=== PATIENT | male | born 2000 | race Caucasian/White ===

== ENCOUNTER 2024-04-24 16:26 | Outpatient (CLI) | payer BC, SELFPAY ==
[2024-04-25 00:16] LABS: Chlamydia DNA Amplified* NOT DETECTED (No Detected); GC DNA Amplified* NOT DETECTED (No Detected)
== END 2024-04-24 16:27 | disposition home or self-care (01) ==
PROVIDERS: PCP Family Medicine; Visit Provider Family Medicine
DX: Z00.00 Encounter for general adult medical examination without abnormal findings (principal); Z11.3 Encounter for screening for infections with a predominantly sexual mode of transmission; Z13.6 Encounter for screening for cardiovascular disorders; Z13.1 Encounter for screening for diabetes mellitus
CPT/HCPCS: 80053; 80061; 86592; 86703; 87491; 87591

== ENCOUNTER 2024-06-05 19:20 | Outpatient (CLI) | payer BC, SELFPAY ==
--- NOTE | 2024-06-14 09:05 | W.PM.SLEEP ---
Sleep Study Details Details Interpreting Provider: Ana Date of Sleep Study: 06/05/24 Sleep Study Details: STUDY TYPE:? Home unattended ? BMI:? 27.6 ORDERING PROVIDER:Lisa Perez INDICATION:? Concern about sleep apnea ? SLEEP SUMMARY:? 285 minutes monitored RESPIRATORY SUMMARY:? AHI 8.4, left lateral 34.7, supine 0, right lateral 13.1 Low oxygen 86 1.3% of study oxygen less than 90% Snoring 34.3% PERIODIC LIMB MOVEMENTS OF SLEEP:? Not record CARDIAC:? Range 53-102, mean 66.2 IMPRESSION:? Mild obstructive sleep apnea severe in left lateral position RECOMMENDATION: Treatment options include CPAP dental appliance and/or airway expansion surgery.
== END 2024-06-05 19:21 | disposition home or self-care (01) ==
LOC: SLEEP 19:20
PROVIDERS: PCP Family Medicine; Visit Provider Otolaryngology
DX: G47.33 Obstructive sleep apnea (adult) (pediatric) (principal)
CPT/HCPCS: 95806